=== PATIENT | male | born 1975 | race Caucasian/White ===

== ENCOUNTER 2020-04-12 13:40 | Emergency (ER) | payer OTHER, SELFPAY ==
--- NOTE | 2020-04-12 14:08 | ED.GENADULT ---
HPI - General Adult General Chief complaint: Urogenital-Male Stated complaint: Std testing/Cough/Chest tightness Time Seen by Provider: 04/12/20 14:07 Source: patient Mode of arrival: ambulatory Limitations: no limitations History of Present Illness HPI narrative: 44-year-old male patient presents to the [facility] with multiple complaints. Patient states that he has been having some chest pain for the past 3 weeks. Patient states it starts in the midsternal area and radiates outward on both sides to the anterior chest. Patient states he does notice a little bit of shortness of breath with this at times and states that the chest pain or shortness of breath does get worse with exertion. Patient does have history of high cholesterol and does take take medications for this but denies any history of cardiac issues or high blood pressure or treatment for these. Patient denies any lightheadedness, dizziness, vision changes. Patient states he has had a slight headache recently. Denies any abdominal pain, nausea, vomiting or diarrhea. Patient also states that he is presenting with STD testing. Patient states he had unprotected sex with a female about a month ago and she texted him today and notified him that she was positive for chlamydia. Patient denies any symptoms. Denies any pain with urination, penile discharge, fevers, body aches or chills. Related Data Home Medications Medication Instructions Recorded Confirmed clomiphene citrate 50 mg PO DAILY 04/12/20 04/12/20 escitalopram oxalate 20 mg PO DAILY 04/12/20 04/12/20 esomeprazole magnesium 40 mg PO DAILY 04/12/20 04/12/20 fluticasone propionate 50 mcg INTRANASAL BID 04/12/20 04/12/20 Allergies Allergy/AdvReac Type Severity Reaction Status Date / Time amoxicillin AdvReac Intermediate Other Verified 04/12/20 14:28 Review of Systems Review of Systems: Narrative: CONSTITUTIONAL: Denies fever, chills, or sweats. EYES: Denies visual changes, redness, or discharge. ENT: Denies rhinorrhea, congestion, sore throat, or otalgia. CARDIOVASCULAR: Positive chest pain x3 weeks, denies palpitations, or edema. RESPIRATORY: Denies cough, positive dyspnea. GASTROINTESTINAL: Denies abdominal pain, nausea, vomiting, or diarrhea. GENITOURINARY: Denies dysuria or hematuria. Positive exposure to STDs SKIN: Denies rash or itching. MUSCULOSKELETAL: Denies back pain, joint pain, or myalgia. NEUROLOGIC: Denies headache, numbness, or weakness. PSYCHIATRIC: Denies anxiety or depression. [facility] Past Medical History Medical History (Updated 04/12/20 @ 14:47 by TERI Multani) GERD (gastroesophageal reflux disease) Hypercholesterolemia Comments At the time of my signature I agree with nursing past medical history, surgical, social, and family history. There is no relevant family history pertinent to the presenting complaint. Exam Narrative: Exam Narrative: GENERAL: Well-appearing, well-nourished, and in no acute distress. HEAD: Normocephalic, atraumatic. EYES: PERRLA and EOMI. ENT: Nares clear, no rhinorrhea or epistaxis. Mucous membranes moist. Posterior pharynx with no erythema, tonsillar joint, exudates or lesions present. NECK: Supple. No lymphadenopathy CHEST: Clear to auscultation. No respiratory distress. Patient able talk clear complete sentences. HEART: Regular rate and rhythm. No murmur heard. Normal peripheral pulses. ABDOMEN: Soft, nontender, nondistended, normal active bowel sounds. EXTREMITIES: Normal range of motion. No edema. SKIN: Warm, dry, no rash. NEURO: No focal deficits. Alert and oriented x3. Course Vital Signs Vital signs: Vital signs reviewed. Transfer Transfered to: [facility] Transportation: Other (Private vehicle) Transfer rationale: Chest pain x3 weeks with abnormal EKG Accepting physician: YVES Arce Transfer comments: Called and spoke with YVES Arce at [facility] in [place]. Notified her that we are sending the patient over with com
[2020-04-12 14:10] VITALS: BP 149/90; PULSE 97; RESP 16; TEMP 37; O2SAT 98
--- NOTE | 2020-04-12 14:31 | ECG_ITS ---
Measurements Intervals [place] Rate: 88 P: -1 UT: 116 QRS: -40 QRSD: 120 T: 72 QT: 382 QTc: 464 Interpretive Statements SINUS RHYTHM WITH SHORT UT INTERVAL LEFT AXIS DEVIATION RSR' IN V1 OR V2, CONSIDER RIGHT VENTRICULAR HYPERTROPHY OR RIGHT VCD ST ELEVATION IN ANTEROLAT/INF LEADS- CONSIDER PERICARDITIS, INJURY OR EARLY REPOLARIZATION BASELINE ARTIFACT- II, III, AVF, V5 ABNORMAL ECG Electronically Signed On 04-12-2020 16:24:14 [employer] by Fermin Daniel D.O.
[2020-04-12] MEDS: ASPIRIN 81 MG CHEWABLE TABLET 324 MG PO (14:34)
== END 2020-04-12 14:55 | disposition short-term general hospital (02) ==
PROVIDERS: Emergency Provider Nurse Practitioner Family
DX: R07.9 Chest pain, unspecified (principal); R06.09 Other forms of dyspnea; R94.31 Abnormal electrocardiogram [ECG] [EKG]; K21.9 Gastro-esophageal reflux disease without esophagitis; E78.00 Pure hypercholesterolemia, unspecified
CPT/HCPCS: 93005; 99213; A9270; G0463

== ENCOUNTER → 2020-04-29 13:44 | Outpatient (CLI) | payer OTHER, SELFPAY ==
--- NOTE | ~2020-04-29 | XR_ITS ---
XR chest 2V DATE: 04/29/2020 14:03 INDICATION: Cough TECHNIQUE: PA and lateral views COMPARISON: None FINDINGS: There is bilateral hyperinflation consistent with COPD. No pulmonary infiltrate or consolid ation, pleural effusion or pulmonary vascular congestion or pneumothorax is detected. Normal heart size. No hilar or mediastinal enlargement. Diffuse osteopenia. There is mild degenerative spurring of the thoracic spine. IMPRESSION: COPD Reviewed, dictated and finalized at location B. REPAIRER IMPRESSION: COPD
== END ==
DX: J44.9 Chronic obstructive pulmonary disease, unspecified (principal); M85.89 Other specified disorders of bone density and structure, multiple sites
CPT/HCPCS: 71046

== ENCOUNTER 2023-04-09 15:28 | Emergency (ER) | payer BC, SELFPAY ==
[2023-04-09 15:41] VITALS: BP 160/92; PULSE 92; RESP 16; TEMP 37.4; O2SAT 97
--- NOTE | 2023-04-09 16:00 | ED.URI ---
HPI - URI/Sore Throat General Chief Complaint: Upper Respiratory Infection Stated Complaint: Couh Source: patient Mode of arrival: ambulatory Limitations: no limitations History of Present Illness HPI Narrative: 47 y/o male presented for c/o cough x10 days. Cough is worse at night with post nasal drainage and producing thick green sputum. Pt taking zyrtec and flonase singulair for allergies, added mucinex DM. Reports occasional sob. Denies wheezing, lethargy, n/v/d/f/c. Related Data Home Medications Medication Instructions Recorded Confirmed clomiphene citrate 50 mg tablet 50 mg PO DAILY 04/12/20 04/09/23 escitalopram oxalate 20 mg tablet 20 mg PO DAILY 04/12/20 04/09/23 esomeprazole magnesium 40 mg 40 mg PO DAILY 04/12/20 04/09/23 capsule,delayed release fluticasone propionate 50 50 mcg intranasal BID 04/12/20 04/09/23 mcg/actuation nasal spray,suspension alprazolam 0.5 mg tablet 0.5 mg PO BID 04/09/23 04/09/23 atorvastatin 20 mg tablet 20 mg PO DAILY 04/09/23 04/09/23 bupropion HCl 150 mg 24 hr tablet, 150 mg PO DAILY 04/09/23 04/09/23 extended release cetirizine 10 mg tablet (Zyrtec) 10 mg PO DAILY 04/09/23 04/09/23 montelukast 10 mg tablet 10 mg PO DAILY 04/09/23 04/09/23 Allergies Allergy/AdvReac Type Severity Reaction Status Date / Time amoxicillin AdvReac Intermediate Other Verified 04/09/23 15:34 Review of Systems Review of Systems: CONSTITUTIONAL: Denies body aches, fever, chills, or sweats. EYES: Denies visual changes, redness, or discharge. ENT: Denies rhinorrhea, congestion, sore throat, or otalgia. CARDIOVASCULAR: Denies chest pain, palpitations, or edema. RESPIRATORY: Reports cough, sob, denies wheezing. GASTROINTESTINAL: Denies abdominal pain, nausea, vomiting, or diarrhea. GENITOURINARY: Denies dysuria or hematuria. SKIN: Denies rash, itching, or wounds. MUSCULOSKELETAL: Denies back pain, joint pain, or myalgia. NEUROLOGIC: Denies headache, numbness, tingling, or weakness. All systems reviewed & are unremarkable except as noted in HPI and below PMFSH Past Medical History Medical History GERD (gastroesophageal reflux disease) Hypercholesterolemia Comments At time of signature, I have reviewed and agree with nursing past medical, surgical, social and family history unless otherwise noted. Please see nursing chart for further information. There is no relevant family history pertinent to the presenting complaint Exam Narrative: GENERAL: Well-appearing, in no acute distress. EYES: EOMI. No redness or drainage. Conjunctivae normal. ENT: Mucous membranes pink and moist. No rhinorrhea. TMs normal bilaterally. Throat normal. Uvula midline. NECK: Normal AROM. Supple. CHEST: No respiratory distress. Lungs clear to all page. HEART: Regular rate and rhythm. No murmur appreciated. ABDOMEN: Soft, nontender, nondistended, normal active bowel sounds. EXTREMITIES: Normal range of motion. No edema. SKIN: Warm, dry, no rash. Capillary refill normal. Normal skin turgor. NEURO: Alert and oriented x3. Gait steady. PSYCH: Normal affect. Course Course Emergency Course: Patient is aware of diagnosis, understands and agrees to treatment plan. Anticipatory guidance given. Patient agrees to follow-up as directed and is aware of reasons to seek care at the emergency department. Portions of this record may have been created with voice recognition software Level of Care: Express Care Visit Vital Signs Vital signs: Vital Signs Temperature 99.3 F 04/09/23 15:41 Pulse Rate 92 04/09/23 15:41 Respiratory Rate 16 04/09/23 15:41 Blood Pressure 160/92 H 04/09/23 15:41 Pulse Oximetry 97 04/09/23 15:41 Oxygen Delivery Room Air 04/09/23 15:41 Temperature 99.3 F 04/09/23 15:41 Pulse Rate 92 04/09/23 15:41 Respiratory Rate 16 04/09/23 15:41 Blood Pressure 160/92 H 04/09/23 15:41 Pulse Oxime
== END 2023-04-09 16:17 | disposition home or self-care (01) ==
PROVIDERS: Emergency Provider Nurse Practitioner Family; PCP Urology
DX: J40 Bronchitis, not specified as acute or chronic (principal); K21.9 Gastro-esophageal reflux disease without esophagitis; E78.00 Pure hypercholesterolemia, unspecified
CPT/HCPCS: 99213; G0463

== ENCOUNTER 2025-02-14 17:05 | Emergency (ER) | payer BC, SELFPAY ==
--- NOTE | 2025-02-14 17:11 | ED.URI ---
HPI - URI/Sore Throat General Chief Complaint: Upper Respiratory Infection Stated Complaint: sore throat/yellow pus coming out of both eyes patient presents to the [facility] with complaints sore throat, nasal congestion, headache, and mild sinus pain that began about 6 days ago. Patient reports feeling like this was a cold / virus and was using [id number] medications and getting temporary relief of symptoms. Patient noted today slowly feeling significantly worse with increasing sinus pain and now noted redness to both eyes and significant drainage from both eyes yellow/ green in color. Patient also noted productive cough now also green in color. No known sick contacts. Denies fever, chills, body aches, dizziness, shortness of breath, nausea, vomiting, diarrhea. Related Data Home Medications ?Medication ?Instructions ?Recorded ?Confirmed ?Last Taken ?Type escitalopram oxalate 20 mg tablet 20 mg PO DAILY 04/12/20 02/14/25 Unknown History esomeprazole magnesium 40 mg 40 mg PO DAILY 04/12/20 02/14/25 Unknown History capsule,delayed release alprazolam 0.5 mg tablet 0.5 mg PO BID 04/09/23 02/14/25 Unknown History atorvastatin 20 mg tablet 20 mg PO DAILY 04/09/23 02/14/25 Unknown History bupropion HCl 150 mg 24 hr tablet, 150 mg PO DAILY 04/09/23 02/14/25 Unknown History extended release Allergies Allergy/AdvReac Type Severity Reaction Status Date / Time amoxicillin AdvReac Intermediate Other Verified 02/14/25 17:06 Review of Systems Constitutional: Constitutional: Reports as per HPI, Denies chills, Reports fatigue, Denies fever(s) and Denies weakness Eyes: Eyes: Reports as per HPI, Denies change in vision and Denies photophobia Comments: Redness to both eyes, drainage from both eyes ENT: Reports as per HPI, Denies vertigo, Denies dizziness, Reports nasal congestion and Reports sore throat Comments: pressure in both ears, sinus pain Cardiovascular: Cardiovascular: Reports no additional cardiovascular complaints Respiratory: Respiratory: Reports as per HPI, Reports chest congestion, Reports cough, Denies dyspnea and Denies wheezing Gastrointestinal: Gastrointestinal: Reports as per HPI, Denies diarrhea, Denies nausea and Denies vomiting Genitourinary: Genitourinary: Reports no additional male genitourinary complaints Musculoskeletal: Musculoskeletal: Reports as per HPI, Denies back pain and Denies myalgias Integumentary/Breasts: Skin/Breast: Reports as per HPI, Denies erythema and Denies rash Neurologic: Reports as per HPI, Denies vertigo, Denies dizziness, Reports headache(s) and Denies weakness Psychiatric: Psychiatric: Reports no additional psychiatric complaints Endocrine: Endocrine: Reports no additional endocrine complaints Hematologic/Lymphatic: Hematologic/Lymphatic: Reports no additional hematologic/lymphatic complaints Allergic/Immunologic: Allergic/Immunologic: Reports as per HPI Comments: seasonal allergies PMFSH Past Medical History Medical History GERD (gastroesophageal reflux disease) Hypercholesterolemia Exam Const: General: healthy appearing and no acute distress Nutritional Appearance: well nourished Orientation/consciousness: patient oriented x3 Limitations: no limitations HENMT: Head: normal to inspection Ears: external ears normal and TM's normal bilaterally Face/Nose/Sinus: Normal external nose present and Normal nares present Face and sinus: normal facial exam and sinus tenderness ( bilateral) maxillary Mouth: Yes Normal oral and palatal mucosa present, Yes lip normal and Yes moist mucous membranes Throat: posterior oropharynx abnormal ( minimal erythema, no edema or exudate noted) Eyes: Conjunctivae: conjunctival abnormality ( injection and green colored exudate noted) bilateral Pupils: Equal, round and reactive pupils present EOM: EOMs intact bilaterally Direct Ophthalmoscopy: no photophobia Neck: Neck: normal visual inspection and no lymphadenopathy Resp: Effort & Inspection: normal respiratory effort Auscultation: clear to auscultation bilaterally Cardio: Rate: regular rate Rhythm: regular rhythm Skin: General skin exam: normal color Rashes: no rashes Wounds: no wounds Neuro: General: patient oriented x3 Speech: normal speech Gait exam (Neuro): Normal gait present Psych: Mental Status: mental status grossly normal Affect: normal affect Attitude: cooperative Course Course Level of Care: Express Care Visit MDM - URI/Sore Throat MDM Narrative Medical decision making narrative: The patient was evaluated by myself in the express care. History is obtained from patient who is an independent historian and physical exam was performed. Available medical records were reviewed at this time. Exam findings show no acute concerns or changes; patient is non-toxic appearing and is in no distress. Patient is appropriate for outpatient treatment and follow-up. I have evaluated and discussed social determinants of health with the patient that could potentially impact subsequent diagnosis and treatment plans. Differential diagnosis and treatment plan were discussed with the patient. Patient agrees with discussion and after shared medical decision making agrees with plan of care. All questions were answered to the patient's satisfaction. Differential Diagnosis Differential diagnosis: Likely upper respiratory infection, croup, otitis media, sinusitis, viral infection, bronchitis, influenza and pharyngitis Medical Records Attestation: I reviewed the patient's medical records. Discharge Plan Discharge Clinical Impression: Sinusitis, Acute conjunctivitis of both eyes Patient Disposition: Home Condition: Stable Instructions: Antibiotic Form, Sinusitis in Children (ED) Additional Instructions: Return to urgent care or go to the ER for new or worsening symptoms. Continue to take Tylenol or Motrin for pain. Use a humidifier or vaporizer at night. Take Medications as prescribed. Drink plenty of water. 8-10 glasses per day. Use flonase 2 times per day for 5 days then as needed Take mucinex 2 times per day and be sure to take with 8oz of water. Follow up with Primary provider if not getting better. Take the full dose of antibiotics as directed Increase water intake to 8-10 glasses per day Patient Language: Portuguese Prescriptions: New doxycycline monohydrate 100 mg capsule 100 mg PO BID Qty: 20 0RF polymyxin B sulf-trimethoprim 10,000 unit- 1 mg/mL drops 1 drp EACH EYE Q3H 7 Days Qty: 10 0RF Rx Instructions: while awake; do not exceed 6 doses in 24 hours No Action atorvastatin 20 mg tablet 20 mg PO DAILY alprazolam 0.5 mg tablet 0.5 mg PO BID bupropion HCl 150 mg tablet extended release 24 hr 150 mg PO DAILY esomeprazole magnesium 40 mg capsule,delayed release(DR/EC) 40 mg PO DAILY escitalopram oxalate 20 mg tablet 20 mg PO DAILY Follow-up/Referrals: Deepti Nichols MD [Primary Care Provider, Urology] Stand Alone Forms: Work/School Release IP Time of Disposition: 17:29
[2025-02-14 17:13] VITALS: BP 152/97; PULSE 114; RESP 20; TEMP 37.2; O2SAT 97
== END 2025-02-14 17:43 | disposition home or self-care (01) ==
PROVIDERS: Emergency Provider Nurse Practitioner Family; PCP Urology
DX: J32.9 Chronic sinusitis, unspecified (principal); H10.33 Unspecified acute conjunctivitis, bilateral; E78.00 Pure hypercholesterolemia, unspecified; K21.9 Gastro-esophageal reflux disease without esophagitis
CPT/HCPCS: 99213; G0463